=== PATIENT | male | born 1990 | race Caucasian/White ===

== ENCOUNTER 2020-03-22 09:33 | Emergency (ER) | payer BC, OTHER ==
[~2020-03-22] VITALS: Ht 182.9 cm; Wt 75.5 kg
[2020-03-22 10:11] LABS: BASO % 0.2 % (0.0-1.0); EOS % 0.2 % (0.0-3.0); HEMATOCRIT 46.1 % (42.0-52.0); HEMOGLOBIN 15.6 g/dl (13.5-17.5); LYMPH # 0.4 10^3/uL (1.5-5.0); LYMPH % 3.3 % (24.0-44.0); MEAN CORPUSCULAR HEMOGLOBIN 31.1 pg (27.0-33.0); MEAN CORPUSCULAR HGB CONC 33.8 g/dl (32.0-36.5); MONO # 0.7 10^3/uL (0.0-0.8); MONO % 5.9 % (0.0-5.0); NEUTROPHILS # 11.3 10^3/uL (1.5-8.5); NEUTROPHILS % 90.1 % (36.0-66.0); PLATELET COUNT, AUTOMATED 236 10^3/uL (150-450); RED BLOOD COUNT 5.01 10^6/uL (4.30-6.10); WHITE BLOOD COUNT 12.6 10^3/uL (4.0-10.0)
[2020-03-22 10:41] LABS: ALBUMIN 4.5 GM/DL (3.2-5.2); ALT/SGPT 25 U/L (12-78); BILIRUBIN,DIRECT 0.3 MG/DL (0.0-0.2); BILIRUBIN,TOTAL 1.6 MG/DL (0.2-1.0); BLOOD UREA NITROGEN 13 MG/DL (7-18); CALCIUM LEVEL 9.7 MG/DL (8.5-10.1); CARBON DIOXIDE LEVEL 29 MEQ/L (21-32); CHLORIDE LEVEL 105 MEQ/L (98-107); CREATININE FOR GFR 0.86 MG/DL (0.70-1.30); GLOMERULAR FILTRATION RATE > 60.0 (>60); GLUCOSE, FASTING 112 MG/DL (70-100); LIPASE 57 U/L (73-393); POTASSIUM SERUM 4.2 MEQ/L (3.5-5.1); SODIUM LEVEL 140 MEQ/L (136-145); TOTAL PROTEIN 7.8 GM/DL (6.4-8.2)
[2020-03-22] MEDS: GASTROGRAFIN SOLUTION 30ML PO SCH ×2 (11:48→12:16)
[2020-03-22] MEDS ORDERED: ISOVUE-370 76% 100ML VIAL As Ordered ONE (12:31)
--- NOTE | 2020-03-22 14:01 | REPVR ---
PROCEDURE INFORMATION: Exam: CT Abdomen And Pelvis With Contrast Exam date and time: 03/22/2020 1:24 PM Age: 29 years old Clinical indication: Abdominal pain; Additional info: Rlq pain with leukocytosis TECHNIQUE: Imaging protocol: Computed tomography of the abdomen and pelvis with intravenous contrast. Radiation optimization: All CT scans at this facility use at least one of these dose optimization techniques: automated exposure control; mA and/or kV adjustment per patient size (includes targeted exams where dose is matched to clinical indication); or iterative reconstruction. Contrast material: ISOVUE 370; Contrast volume: 100 ml; Contrast route: INTRAVENOUS (IV); COMPARISON: No relevant prior studies available. FINDINGS: Lungs: Mild interstitial prominence and trace dependent airspace disease. Liver: No focal hepatic mass. Gallbladder and bile ducts: Contracted gallbladder. No biliary ductal dilatation. Pancreas: No pancreatic mass or ductal dilatation. Spleen: No splenomegaly. Adrenals: Subtle right adrenal nodularity. Kidneys and ureters: Normal renal morphology. No hydronephrosis. Stomach and bowel: Jejunal intussusception (series 201: Image 75), without high-grade small bowel obstruction. Colonic dilatation. Diverticula, without pericolonic inflammation. Appendix: No acute appendicitis. Intraperitoneal space: Small quantity of dependent free fluid in the pelvis. Vasculature: Normal caliber of the abdominal aorta. Lymph nodes: Subcentimeter lymph nodes. Bladder: Normal bladder morphology. Reproductive: Unremarkable as visualized. Bones/joints: Transitional vertebra at the lumbosacral junction. IMPRESSION: 1. Jejunal intussusception (series 201: Image 75), without high-grade small bowel obstruction. 2. Small quantity of dependent free fluid in the pelvis. 3. Additional findings as described above. The aforementioned findings initiated a critical results communication pathway. An addendum will be issued at the time of clincian notification. Electronically signed by: Tomy Nicole On 03/22/2020 14:00:51 PM
[2020-03-22 14:03] VITALS: BP 125/71
--- NOTE | 2020-03-22 15:49 | ED PDOC ---
Post-Departure Follow-Up dr campos faxed formal report of ct abd/p for fu Mikayla Graves MD Mar 22, 2020 15:48
== END 2020-03-22 15:06 | disposition home or self-care (01) ==
LOC: M ED 09:33
DX: R10.9 Unspecified abdominal pain (principal); K56.1 Intussusception; Z96.22 Myringotomy tube(s) status
CPT/HCPCS: 74177; 80048; 80076; 81001; 83690; 85025; 99284; Q9963; Q9967

== ENCOUNTER → 2020-04-08 | Outpatient (CLI) | payer BC ==
[~2020-04-08] MED LIST: E-Z-GAS II EFFERVESCENT PACKET (SODIUM BICARB./CITRIC ACID/SIMETHICONE) As Ordered ONE; E-Z-HD 98% w/w 340GM SUSP BTL As Ordered ONE; E-Z-PAQUE 96% w/w SUSP 176GM BTL As Ordered ONE
--- NOTE | 2020-04-23 07:18 | REP ---
UPPER GI AIR CONTRAST AND SMALL BOWEL FOLLOTHROUGH: 04/08/20 The procedure was performed under the direct supervision of Dr. Thomas. The images are reviewed with Dr. Thomas. The laboratory assistant film shows no organomegaly or pathologic masses. The intestinal gas pattern is nonspecific. Liquid barium and gas producing granules were given in the erect position as well as liquid barium in the prone oblique position in order to perform a double contrast upper GI examination. Additionally, liquid barium was given at the end of the examination in order to perform a small bowel followthrough. The oral and pharyngeal stages of deglutition are unremarkable. Esophageal transport is prompt and efficient and there is no esophagitis, stricture, mucosal ring or hiatal hernia. There is gastroesophageal reflux demonstrated to the level of the janis. The stomach dumas are normally outlined. The rugal folds are smooth and regular. There is no gastritis, neoplasm or ulcer disease. The duodenal dumas are normally outlined. The mucosal folds are smooth and regular. There is no duodenitis, pancreatitis, peptic ulcer disease or neoplasm. The visualized portion of the proximal small bowel appears normal in course and caliber. The barium column is followthrough the small bowel tot he level of the terminal ileum. Small bowel transit time is approximately 30 minutes. Gentle palpation shows nonspecific mild fold thickening in the jejunal loops. There is no intussusception or mass lesion visualized. Spot filming of the terminal ileum shows it to be unremarkable. IMPRESSION: 1. There is gastroesophageal reflux demonstrated to the level of the janis. 2. There is nonspecific mild fold thickening in the jejunal loops. There is no intussusception or mass lesion identified. 3. 2 minutes of fluoroscopy time was utilized for this procedure. [facility]ENTERKenyetta
== END ==
LOC: M RAD 07:58
PROVIDERS: ATTEND Surgery
DX: R19.7 Diarrhea, unspecified (principal); R10.84 Generalized abdominal pain; K21.9 Gastro-esophageal reflux disease without esophagitis

== ENCOUNTER 2020-06-18 13:45 | Emergency (ER) | payer BC ==
[~2020-06-18] VITALS: Ht 182.9 cm; Wt 77.5 kg
[2020-06-18] MEDS ORDERED: KETOROLAC 30 MG/ML 1ML VIAL IV ONE (15:00)
--- NOTE | 2020-06-18 15:42 | REP ---
INDICATION: right sided rib pain with deep breaths COMPARISON: None. TECHNIQUE: Frontal view of the chest with multiple views of the right hemithorax. (Five views total) FINDINGS: Frontal view of the chest demonstrates no acute cardiopulmonary process, contusion, effusion, or pneumothorax. Multiple views of the hemithorax demonstrates no acute rib fracture/injury or pathology. IMPRESSION: Normal rib series. <Electronically signed by Bony Vega > 06/18/20 [id number]
[2020-06-18 15:56] LABS: BASO % 0.4 % (0.0-1.0); EOS # 0.1 10^3/uL (0.0-0.5); EOS % 1.3 % (0.0-3.0); HEMATOCRIT 43.7 % (42.0-52.0); HEMOGLOBIN 14.5 g/dl (13.5-17.5); LYMPH # 1.8 10^3/uL (1.5-5.0); LYMPH % 26.8 % (24.0-44.0); MEAN CORPUSCULAR HEMOGLOBIN 29.8 pg (27.0-33.0); MEAN CORPUSCULAR HGB CONC 33.2 g/dl (32.0-36.5); MEAN CORPUSCULAR VOLUME 89.9 fl (80.0-96.0); MONO # 0.6 10^3/uL (0.0-0.8); MONO % 8.6 % (0.0-5.0); NEUTROPHILS # 4.3 10^3/uL (1.5-8.5); NEUTROPHILS % 62.8 % (36.0-66.0); PLATELET COUNT, AUTOMATED 226 10^3/uL (150-450); RED BLOOD COUNT 4.86 10^6/uL (4.30-6.10); WHITE BLOOD COUNT 6.8 10^3/uL (4.0-10.0)
[2020-06-18 16:19] LABS: INR 0.94; PROTHROMBIN TIME 12.8 SECONDS (12.5-14.3)
[2020-06-18 16:20] LABS: PARTIAL THROMBOPLASTIN TIME 29.6 SECONDS (24.2-38.5)
[2020-06-18 16:28] LABS: D-DIMER QUANT < 270 ng/ml (<500)
[2020-06-18 17:21] LABS: ALBUMIN 4.5 GM/DL (3.2-5.2); ALT/SGPT 25 U/L (12-78); BILIRUBIN,DIRECT 0.4 MG/DL (0.0-0.2); BILIRUBIN,TOTAL 1.9 MG/DL (0.2-1.0); BLOOD UREA NITROGEN 16 MG/DL (7-18); CALCIUM LEVEL 9.6 MG/DL (8.5-10.1); CARBON DIOXIDE LEVEL 27 MEQ/L (21-32); CHLORIDE LEVEL 105 MEQ/L (98-107); CK-MB VALUE MASS < 1.0 NG/ML (<3.6); CPK CREATINE PHOSPHOKINASE 97 U/L (39-308); CREATININE FOR GFR 0.87 MG/DL (0.70-1.30); FREE T4 1.22 NG/DL (0.76-1.46); GLOMERULAR FILTRATION RATE > 60.0 (>60); GLUCOSE, FASTING 79 MG/DL (70-100); LIPASE 95 U/L (73-393); MB/CK RELATIVE INDEX 1.03 (< OR =4); POTASSIUM SERUM 3.8 MEQ/L (3.5-5.1); SODIUM LEVEL 139 MEQ/L (136-145); THYROID STIMULATING HORMONE 0.436 uIU/ML (0.358-3.740); TOTAL PROTEIN 7.5 GM/DL (6.4-8.2); TROPONIN I < 0.02 NG/ML (< 0.10)
[2020-06-18] MEDS ORDERED: NAPR-837 PO (17:32)
[2020-06-18 18:05] VITALS: BP 128/77
--- NOTE | 2020-06-18 19:22 | ECGEPIP ---
[facility] - ED Test Date: 2020-06-18 Pat Name: JENNIFER ROBBINS Department: Room: - Gender: Male Emergency Services Director: bharath : 1990 Requested By: Mikayla Jennings Order Number: [id number] Reading MD: Mikayla Jennings Measurements Intervals [place] Rate: 62 P: 16 CO: 154 QRS: 17 QRSD: 100 T: 41 QT: 382 QTc: 390 Interpretive Statements SINUS RHYTHM MODERATE VOLTAGE CRITERIA FOR LVH, CONSIDER NORMAL VARIANT NONSPECIFIC ST T WAVE CHANGES NO PRIOR ECG FOR COMPARISON Electronically Signed on 06-18-2020 19:22:17 EST by Mikayla Jennings
== END 2020-06-18 18:06 | disposition home or self-care (01) ==
LOC: M ED 13:45
DX: R07.89 Other chest pain (principal); E80.6 Other disorders of bilirubin metabolism
CPT/HCPCS: 36415; 71101; 80048; 80076; 82550; 82553; 83690; 84439; 84443; 84484; 85025; 85379; 85610; 85730; 93005; 96374; 99284; J1885

== ENCOUNTER → 2024-08-26 | Outpatient (CLI) | payer BC, OTHER ==
[~2024-08-26] MED LIST changes: -E-Z-GAS II EFFERVESCENT PACKET (SODIUM BICARB./CITRIC ACID/SIMETHICONE) As Ordered ONE; -E-Z-HD 98% w/w 340GM SUSP BTL As Ordered ONE; -E-Z-PAQUE 96% w/w SUSP 176GM BTL As Ordered ONE; +NAPR-837 PO
== END ==
LOC: M RAD 07:58
PROVIDERS: ATTEND Nurse Practitioner Adult Health
DX: S43.001A Unspecified subluxation of right shoulder joint, initial encounter (principal); S43.431A Superior glenoid labrum lesion of right shoulder, initial encounter; M85.611 Other cyst of bone, right shoulder

== ENCOUNTER → 2024-09-16 | Outpatient (CLI) | payer OTHER | LOC: M SOG 07:51 | PROVIDERS: ATTEND Orthopaedic Surgery | DX: M25.511 Pain in right shoulder (principal) ==

== ENCOUNTER → 2024-09-23 | Outpatient (CLI) | payer OTHER | LOC: M SOG 07:58 | PROVIDERS: ATTEND Orthopaedic Surgery | DX: M25.511 Pain in right shoulder (principal) ==